=== PATIENT | male | born 1980 | race Caucasian/White ===

== ENCOUNTER 2022-05-26 08:59 | Emergency (ER) | payer BC, OTHER ==
[2022-05-26] MEDS ORDERED: Sodium Chloride 0.9% 10 ML Syringe FLUSH PRN (09:34)
== END 2022-05-26 11:52 | disposition home or self-care (01) ==
LOC: JD.ED 08:59
DX: I11.9 Hypertensive heart disease without heart failure (principal); Z79.899 Other long term (current) drug therapy; Z86.16 Personal history of COVID-19; Z72.0 Tobacco use
CPT/HCPCS: 36415; 71046; 80053; 84443; 84484; 85025; 85379; 86140; 93005; 99284; J3490